=== PATIENT | male | born 1980 | race Caucasian/White ===

== ENCOUNTER 2022-01-19 18:58 | Emergency (ER) | payer BC, OTHER ==
--- OUTSIDE RECORDS SUMMARY | 2022-01-19 19:02 | XMS REPORT | Continuity of Care Document ---
:1980 [facility] t Address [address] [place] [address] Care Team Providers Name Role Phone Asher Stallworth Primary Care Physician KEYUR ALEJANDRO Attending Clinician Unavailable Flavia INFUSION PHARMACIST-Keyur Oliver Attending Clinician MARYSOL THOMAS Attending Clinician Unavailable Marysol Lyon Attending Clinician Nurse, [facility] Attending Clinician Unavailable Hawk Christie MD Attending Clinician HAWK CHRISTIE Attending Clinician Unavailable Doctor Unassigned, [place] Attending Clinician Unavailable Payers Payer Name Policy Type Policy Number Effective Date Expiration Date [place] [address] [id number] 2021 [employer] LIFE 00:00:00 INS/PPO COMMERCIAL [id number] 2021 NON-CONTRACT 00:00:00 GENERIC HIM BCBS BLUE [id number] 2018 ADVANTAGE HMO 00:00:00 Problems Condition Condition Condition Status Onset Resolution Last Treating Co mments Source Name Details Category Date Date Treatment Clinician Date No known No known Disease Unive rs active active ity of problems problems [facility] Allergies, Adverse Reactions, Alerts Allergy Allergy Status Severity Reaction(s) Onset Inactive Treating Comm ents Source Name Type Date Date Clinician NO KNOWN Drug Active Univers ALLERGIE Class ity of [facility] Social History Social Habit Start Date Stop Date Quantity Comments Source History of Snuff User [place] of tobacco use [facility] Exposure to 2022-01-07 2022-01-17 Not sure [facility] SARS-CoV-2 00:00:00 16:51:00 [facility] (event) Branch Tobacco use and 2018-08-03 2018-08-03 User of smokeless Un iversity of exposure 00:00:00 00:00:[address] [facility] Sex Assigned At [birth year] Universit y of 00:00:00 00:00:00 [facility] Smoking Status Start Date Stop Date Source Never smoked tobacco [facility] Medications Ordered Filled Start Stop Current Ordering Indication Dosage Frequency Signature Comments Components Source Medication Medication Date Date Medication? Clinician (SIG) Name Name iopamidol 2021- No [id number] 75mL 75 mL, U nivers (ISOVUE 01-18 Intravenou ity o f 370-500 mL) 02:00: 01:00 s, ONCE, 1 [place] injection 00 :00 dose, On Medica l [address] [facility] 01/17/22 at 2100, Routine HYDROcodone 2021- No 1{tbl} 1 tablet, Univers -acetaminop 01-18 Oral, ity of hen (NORCO 00:30: 00:24 ONCE, 1 Link as 5) 5-325 mg 00 :00 dose, On Medi sp tablet [address] [facility] tablet 01/17/22 at 1930, BABAK lisinopriL Yes 10mg 10 mg, Unive rs (PRINIVIL,Z 01-17 Oral, ity of ESTRIL) 22:30: DAILY, [place] tablet 10 00 First dose Medi sp mg on [facility] Branch 01/17/22 at 1730, Until Discontinu ed, BABAK methocarbam 2021- No 1000mg 1,000 mg, Univers oL 01-17 Oral, ity of (ROBAXIN) 22:30: 22:41 ONCE, 1 [place] tablet 00 :00 dose, On Medical 1,[address] [facility] 01/17/22 at 1730, BABAK ketorolac 2021- No 30mg 30 mg, Unive rs (TORADOL) 01-17 Slow IV ity of injection 22:30: 22:41 Push, [place] 30 mg 00 :00 ONCE, 1 Medical dose, On Branch Sat01/17/22 at 1730, BABAK ibuprofen Yes [id number] 800mg Take 1 Univers 800 mg 8-24 tablet by ity of tablet 00:00: mouth [place] 00 every 8 Medical (eight) Branch hours as needed for Pain (scale 4-6). methocarbam Yes [id number] 750mg Take 1 Univers oL 750 mg 8-24 tablet by ity o f tablet 00:00: mouth 4 [place] 00 (four) Medical times Branch daily as needed for Pain (scale 7-10). lisinopriL 2021- Yes [id number] 10mg Take 1 Univers 10 mg 8-24 09-08 tablet by ity of tablet 00:00: 04:59 mouth at [place] 00 :00 bedtime Medical for 14 Branch days. moxifloxaci Yes [id number] 1[drp] Place 1 Univers n (VIGAMOX) 3-30 Drop in ity o f 0.5 % 00:00: left eye 4 [place] ophthalmic 00 (four) Medical drops times Branch daily. moxifloxaci Yes [id number] 1[drp] Place 1 Univers n (VIGAMOX) 3-30 Drop in ity o f 0.5 % 00:00: left eye 4 [place] ophthalmic 00 (four) Medical drops times Branch daily. moxifloxaci Yes [id number] 1[drp] Place 1 Univers n (VIGAMOX) 3-30 Drop in ity o f 0.5 % 00:00: left eye 4 [place] ophthalmic 00 (four) Medical drops times Branch daily. neomycin-ba Yes [id number] .5[in_u Place 0.5 Univers citracin-po 3-29 s] Inches in ity of lymyxin 00:00: left eye [place] 3.5-400-10, 00 every 4 Medic al 000 (four) Branch mg-unit-uni hours. t/g ophthalmic ointment neomycin-ba Yes [id number] .5[in_u Place 0.5 Univers citracin-po 3-29 s] Inches in ity of lymyxin 00:00: left eye [place] 3.5-400-10, 00 every 4 Medic al 000 (four) Branch mg-unit-uni hours. t/g ophthalmic ointment neomycin-ba 2019-0 Yes [id number] .5[in_u Place 0.5 Univers citracin-po 3-29 s] Inches in ity of lymyxin 00:00: left eye [place] 3.5-400-10, 00 every 4 Medic al 000 (four) Branch mg-unit-uni hours. t/g ophthalmic ointment Vital Signs Vital Name Observation Time Observation Value Comments Source Systolic blood 2022-01-18 01:48:00 164 mm[Hg] Univer [facility] Diastolic blood 2022-01-18 01:48:00 119 mm[Hg] Unive rs[facility] Heart rate 2022-01-18 01:48:00 71 /min [facility] Respiratory rate 2022-01-18 01:48:00 15 /min [facility] Oxygen saturation in 2022-01-18 01:48:00 94 /min University of Arterial blood by [facility] Pulse oximetry Branch Body temperature 2022-01-17 22:45:00 36.61 Ynes [facility] Body weight 2022-01-17 22:12:00 131.543 kg [facility] BMI 2022-01-17 22:12:00 39.33 kg/m2 [facility] Systolic blood 2022-01-17 21:52:00 169 mm[Hg] Univer [facility] Diastolic blood 2022-01-17 21:52:00 119 mm[Hg] Unive [facility] Oxygen saturation in 2022-01-17 21:51:00 99 /min [facility] Arterial blood by [facility] Pulse oximetry Branch Heart rate 2022-01-17 21:51:00 86 /min [facility] temperature 2022-01-17 21:51:00 37.06 Ynes [facility] ersity [facility] Respiratory rate 2022-01-17 21:51:00 16 /min [facility] Body height 2022-01-17 21:51:00 182.9 cm [facility] Body weight 2022-01-17 21:51:00 131.543 kg [facility] BMI 2022-01-17 21:51:00 39.33 kg/m2 [facility] Procedures Procedure Date / Time Performing Clinician Source Performed CT ANGIOGRAM HEAD 2022-01-18 01:05:00 William [facility] CT ANGIOGRAM NECK 2022-01-18 01:05:00 [facility] 2022-01-18 01:04:00 Marysol Thomas [facility] URIN[facility]YSIS 2022-01-17 22[facility]17 22:40[facility] COMP. METABOLIC PANEL 2022-01-17 22:40:00 ThomasMarysol mendez [facility] ([id number]) [facility] CBC WITH DIFF 2022-01-17 22:40[facility] INR 2022-01-17 22:40:00 [facility] [place] CONSENT/REFUSAL FOR 2022-01-17 21:58:47 Doctor Unassigned, [facility] CONSENT/REFUSAL FOR 2022-01-17 21:32:01 [facility], [facility] Encounters Start End Encounter Admission Attending Care Care Encounter Source Date/Time Date/Time Type Type Clinicians Facility Department ID 2022-02-15 2022-02-15 Outpatient LILIANA ALEJANDRO [id number] [place] 08:00:00 08:00:00 KEYUR noble 2022-01-19 2022-01-19 Outpatient LILIANA ALEJANDRO [id number] [place] 00:00:00 00:00:00 KEYUR noble 2022-01-18 2022-01-18 Office Bari Alejandro [id number] [place] 10:30:00 11:00:00 Visit Keyur Roberts [id number] Se smith [id number] 2022-01-18 2022-01-18 Outpatient BRENNA ALEJANDRODANIELLE ROBLERO [id number] [place] 09:00:00 09:00:00 KEYUR Seelena noble 2022-01-18 2022-01-18 Outpatient LILIANA ALEJANDRO LILIANA [id number] [place] 00:00:00 00:00:00 KEYUR noble 2022-01-17 2022-01-17 Emergency X WILLIAM, [facility] ERT [id number] Univers 17:14:00 20:55:[address] [facility] 2022-01-17 2022-01-17 [facility] [id number] Univers 17:14:00 20:55:00 Marysol ALONSO [id number] i ty of [place] [id number] [place] [facility] [phone] [address] 2022-01-17 2022-01-17 Nurse Nurse, [facility] [id number] Univers 16:30:00 16:50:00 [facility] [id number] ity of [place] [id number] Link as ANDREA?BLEA [phone] [address] MEDICAL OFFICE BUILDING 2022-01-17 2022-01-17 Outpatient R [facility] [id number] Univers 16:30:00 16:30:[id number] [facility] 2022-01-17 2022-01-17 [facility] [id number] Univers 16:30:00 16:30:00 [facility] 2022-[facility]-17 2022-01-17 Orders Doctor RASHID [id number] Univers 00:00:00 00:00:00 Only Unassigned, ETTA [id number] ity of [place] [facility] [id number] Link as [phone] [address] Results This patient has no known results.
[2022-01-19] MEDS ORDERED: ASPIRIN 81 MG CHEWABLE TABLET ONE ×2 (19:54→19:56)
[2022-01-19 19:56] LABS: Absolute Lymphocytes (CBC) 1.9 K/uL (0.7-4.9); Lymphocytes % 21.7 % (15.3-44.8); MCV 83.6 fL (80-100); RBC Red Blood Cell Count 5.75 M/uL (4.33-5.43)
--- NOTE | 2022-01-19 20:18 | RAD REPORT ---
EXAM DESCRIPTION: CT - Head Brain Wo Cont - 01/19/2022 8:04 pm CLINICAL HISTORY: Headache COMPARISON: No comparisons TECHNIQUE: Axial 5 mm thick images of the head were obtained without IV contrast. All CT scans are performed using dose optimization technique as appropriate and may include automated exposure control or mA/KV adjustment according to patient size. FINDINGS: No intracranial hemorrhage, mass, edema or shift of mid-line structures. No acute infarcti on changes seen. No abnormal extra-axial fluid collections. Ventricles are normal. Mastoid air cells and visualized portions of the paranasal sinuses are clear. No acute bony findings. IMPRESSION: Negative non-contrast CT head examination.
[2022-01-19 20:40] LABS: Troponin High Sensitivity 8.1 pg/mL (<58.9)
[2022-01-19 20:41] LABS: Potassium 3.9 mmol/L (3.5-5.1)
[2022-01-19] MEDS ORDERED: KETOROLAC 30 MG/ML INJ ONE (20:58)
[2022-01-19] MEDS ORDERED: DIPHENHYDRAMINE 50 MG/ML VIAL ONE (20:58)
[2022-01-19] MEDS ORDERED: METOCLOPRAMIDE 10 MG/2mL INJ ONE (20:58)
[2022-01-19] MEDS ORDERED: NA CHLORIDE 0.9% 1,000 ML ONE (20:58)
--- NOTE | 2022-01-19 22:46 | RAD REPORT ---
EXAM DESCRIPTION: RAD - Chest Single View - 01/19/2022 10:40 pm CLINICAL HISTORY: CHEST PAIN COMPARISON: Two view chest October 2016 TECHNIQUE: AP portable chest image was obtained 01/19/2022 10:40 pm . FINDINGS: Lungs are clear. Heart and vasculature are normal. No measurable pleural effusion and no p neumothorax. No acute bony abnormality seen. No acute aortic findings suspected. Final report was delayed due to technical malfunction. IMPRESSION: No acute cardiopulmonary process. No significant change from comparison study.
--- NOTE | 2022-01-19 23:01 | EDPHYS ---
Physician Documentation [facility] Name: Chris Storey Age: 41 yrs Sex: Male : 1980 Arrival Date: 01/19/2022 Time: 19:02 Bed 16 Private MD: ED Physician Joshua Barker HPI: 01/19 19:53 This 41 yrs old Male presents to ER via Ambulatory with complaints of High Blood ms3 Pressure, Chest Tightness, Numbness Of Arm, Headache. 19:54 The patient complains of pain to the left occipital area. The patient describes the ms3 headache as aching. Onset: The symptoms/episode began/occurred acutely, 1 week(s) ago. Associated signs and symptoms: Pertinent positives: This patient does not have any pertinent positive signs or symptoms associated with a headache. Pertinent negatives: fever, nausea, vision changes, vision loss, vomiting, weakness. Severity of symptoms: At its worst the pain was severe, in the emergency department the pain is unchanged. The symptoms are alleviated by nothing. the symptoms are aggravated by nothing. Historical: - Allergies: 19:13 No Known Allergies; ap3 - Home Meds: 19:13 Claritin-D 12 Hour Oral [Active]; ap3 - PMHx: 19:13 HTN; ap3 - PSHx: 19:13 None; ap3 - Immunization history:: Adult Immunizations up to date. - Social history:: Smoking status: Patient reports the use of cigarette tobacco products, denies chronic smoking, but will smoke occasionally, Patient uses alcohol, occasionally. ROS: 19:54 Constitutional: Negative for fever, and chills. Eyes: Negative for injury, pain, ms3 redness, and discharge, Neck: Negative for injury, pain, and swelling, Cardiovascular: Negative for chest pain, and palpitations. Respiratory: Negative for shortness of breath, cough, wheezing, and pleuritic chest pain, Abdomen/GI: Negative for abdominal pain, nausea, vomiting, diarrhea, and constipation, MS/Extremity: Negative for injury and deformity, Skin: Negative for injury, rash, and discoloration. 19:54 Neuro: Positive for headache. 19:54 All other systems are negative. Exam: 19:36 ECG was reviewed by the Attending Physician. ms3 19:54 Constitutional: This is a well developed, well nourished patient who is awake, alert, ms3 and in no acute distress. Head/Face: Normocephalic, atraumatic. Eyes: Pupils equal round and reactive to light, extra-ocular motions intact. Lids and lashes normal. Conjunctiva and sclera are non-icteric and not injected. Periorbital areas with no swelling, redness, or edema. Neck: Trachea midline, no cervical lymphadenopathy. Supple, full range of motion without nuchal rigidity, or vertebral point tenderness. No Meningismus. Chest/axilla: Normal chest wall appearance and motion. Nontender with no deformity. Cardiovascular: Regular rate and rhythm with a normal S1 and S2. No gallops, murmurs, or rubs. Normal PMI, no JVD. No pulse deficits. Respiratory: Lungs have equal breath sounds bilaterally, clear to auscultation and percussion. No rales, rhonchi or wheezes noted. No increased work of breathing, no retractions or nasal flaring. Abdomen/GI: Soft, non-tender, with normal bowel sounds. No distension or tympany. No guarding or rebound. No evidence of tenderness throughout. Back: No spinal tenderness. No costovertebral tenderness. Full range of motion. Skin: Warm, dry with normal turgor. Normal color with no rashes, no lesions, and no evidence of cellulitis. MS/ Extremity: Pulses equal, no cyanosis. Neurovascular intact. Full, normal range of motion. Psych: Awake, alert, with orientation to person, place and time. Behavior, mood, and affect are within normal limits. Vital Signs: 19:13 BP 172 / 114; Pulse 83; Resp 18; Temp 97.8(TE); Pulse Ox 96% on R/A; Weight 131.54 kg; ap3 Height 6 ft. 1 in. (185.42 cm); Pain 10/10; 23:08 BP 155 / 103; Pulse 77; Resp 14; Pulse Ox 97% ; ja4 19:13 Body Mass Index 38.26 (131.54 kg, 185.42 cm) ap3 [place] Coma Score: 19:20 Eye Response: spontaneous(4). Verbal Response: oriented(5). Motor Response: obeys ja4 commands(6). Total: 15. MDM: 19:36 Patient medically screened. ms3 19:54 Differential diagnosis: cluster headache, migraine, subarachnoid bleed, [place] vs Angina vs ms3 PE. 23:00 Data reviewed: vital signs, nurses notes, lab test result(s), EKG, radiologic studies, ms3 and as a result, I will discharge patient. 23:00 Data interpreted: quality assurance monitor chassis: rate is 72 beats/min, rhythm is normal sinus rhythm, ms3 with no ectopy, Interpretation: normal rate, normal rhythm. Counseling: I had a detailed discussion with the patient and/or guardian regarding: the historical points, exam findings, and any diagnostic results supporting the discharge/admit diagnosis, lab results, radiology results, the need for outpatient follow up, to return to the emergency department if symptoms worsen or persist or if there are any questions or concerns that arise at home. ED course: Patient symptoms improved while in the emergency department, patient is alert and oriented x4, in no apparent distress, nontoxic, ambulatory in emergency department. Patient to follow-up as instructed. All questions were answered. Return precautions discussed include worsening symptoms, or any other concerns.. 01/19 19:33 Order name: Basic Metabolic Panel; Complete Time: 20:46 ms3 01/19 19:33 Order name: CBC with Diff; Complete Time: 20:46 ms3 01/19 19:33 Order name: Troponin HS; Complete Time: 20:46 ms3 01/19 19:33 Order name: XRAY Chest (1 view); Complete Time: 22:57 ms3 01/19 19:33 Order name: CT Head Brain wo Cont; Complete Time: 20:46 ms3 01/19 19:53 Order name: D-Dimer; Complete Time: 20:46 ms3 01/19 19:33 Order name: EKG; Complete Time: 19:33 ms3 01/19 19:33 Order name: Cardiac monitoring; Complete Time: 19:43 ms3 01/19 19:33 Order name: EKG - Nurse/Tech; Complete Time: 19:43 ms3 01/19 19:33 Order name: IV Saline Lock; Complete Time: 19:43 ms3 01/19 19:33 Order name: Labs collected and sent; Complete Time: 19:43 ms3 01/19 19:33 Order name: O2 Per Protocol; Complete Time: 19:44 ms3 01/19 19:33 Order name: O2 Sat Monitoring; Complete Time: 19:44 ms3 EC:54 Rate is 74 beats/min. Rhythm is regular. QRS [place] is Normal. [place] interval is normal. QRS ms3 interval is normal. Clinical impression: NSR w/ Non-specific ST/T Changes. Interpreted by me. Reviewed by me. Administered Medications: 19:47 Drug: Aspirin Chewable Tablet 324 mg Route: PO; ld1 20:49 Drug: Reglan (metoCLOPramide) 10 mg Route: IVP; Site: left antecubital; ja4 20:49 Drug: NS 0.9% 1000 ml Route: IV; Rate: 1000 ml; Site: left antecubital; ja4 20:49 Drug: Benadryl (diphenhydrAMINE) 25 mg Route: IVP; Site: left antecubital; ja4 20:57 Drug: Ketorolac 30 mg Route: IVP; Site: left antecubital; ll3 22:02 Drug: D10 in Water [2 mL/kg] 500 ml Route: IVP; Site: left forearm; ja4 Disposition Summary: 01/19/22 23:00 Discharge Ordered Location: Home ms3 Condition: Stable ms3 Diagnosis - Headache ms3 - Essential (primary) hypertension ms3 - Chest pain, unspecified ms3 Followup: ms3 - With: Mike Titus MD - When: 2 - 3 days - Reason: Recheck today's complaints Discharge Instructions: - Discharge Summary Sheet ms3 - Nonspecific Chest Pain, Adult ms3 - Hypertension, Adult ms3 Forms: - Medication Reconciliation Form ms3 - Thank You Letter ms3 - Antibiotic Education ms3 - Prescription Opioid Use ms3 Signatures: Dispatcher [employer] EDME Aiyana Leon RN RN ap3 Joshua Barker DO DO ms3 Bijal Mike RN RN ld1 William Irving RN RN ll3 Acosta Feldman RN RN ja4 Corrections: (The following items were deleted from the chart) 19:14 19:13 PMHx: None; ap3 ap3 19:59 19:36 ECG was reviewed by the Attending Physician. ms3 ms3 01/20 08:35 08:33 Data reviewed: vital signs, nurses notes, lab test result(s), EKG, radiologic ms3 studies, ms3
--- NOTE | 2022-01-19 23:01 | ER ---
Nurse's Notes [facility] Name: Chris Storey Age: 41 yrs Sex: Male : 1980 Arrival Date: 01/19/2022 Time: 19:02 Bed 16 Private MD: Diagnosis: Headache;Essential (primary) hypertension;Chest pain, unspecified Presentation: 01/19 19:09 Chief complaint: EMS states: chest pain and high BP 181 systolic started today, ap3 throbbing h/a since Saturday. Coronavirus screen: Vaccine status: Patient reports being unvaccinated. Ebola Screen: No symptoms or risks identified at this time. Risk Assessment: Do you want to hurt yourself or someone else? Patient reports no desire to harm self or others. Onset of symptoms was January 19, 2022. 19:09 Method Of Arrival: Ambulatory ap3 19:09 Acuity: BUSHRA 3 ap3 19:13 Initial Sepsis Screen: Does the patient meet any 2 criteria? No. Patient's initial ap3 sepsis screen is negative. Does the patient have a suspected source of infection? No. Patient's initial sepsis screen is negative. Triage Assessment: 19:16 General: Appears distressed, uncomfortable, Behavior is cooperative, appropriate for ap3 age, anxious. Pain: Complains of pain in top of head, forehead, right eye, left eye, right jehovah's witness, left jehovah's witness, left side of the back of head and right side of the back of head Pain does not radiate. Pain currently is 10 out of 10 on a pain scale. Quality of pain is described as throbbing, Pain began 1 day ago. Is continuous, Alleviated by rest, Aggravated by increased activity, repositioning. Neuro: Level of Consciousness is awake, alert, obeys commands, Oriented to person, place, time, situation. Cardiovascular: Capillary refill < 3 seconds Patient's skin is warm and dry. 19:16 Respiratory: Airway is patent Respiratory effort is even, unlabored. ap3 Historical: - Allergies: 19:13 No Known Allergies; ap3 - Home Meds: 19:13 Claritin-D 12 Hour Oral [Active]; ap3 - PMHx: 19:13 HTN; ap3 - PSHx: 19:13 None; ap3 - Immunization history:: Adult Immunizations up to date. - Social history:: Smoking status: Patient reports the use of cigarette tobacco products, denies chronic smoking, but will smoke occasionally, Patient uses alcohol, occasionally. Screenin:20 Abuse screen: Denies threats or abuse. Nutritional screening: No deficits noted. ja4 Tuberculosis screening: No symptoms or risk factors identified. Fall Risk None identified. Assessment: 19:20 General: Appears uncomfortable, Behavior is calm, cooperative, appropriate for age. ja4 Pain: Denies pain. Pain began 1 day ago. Is continuous. Cardiovascular: Reports chest pain, Denies Chest pain quality is burning. Vital Signs: 19:13 BP 172 / 114; Pulse 83; Resp 18; Temp 97.8(TE); Pulse Ox 96% on R/A; Weight 131.54 kg; ap3 Height 6 ft. 1 in. (185.42 cm); Pain 10/10; 23:08 BP 155 / 103; Pulse 77; Resp 14; Pulse Ox 97% ; ja4 19:13 Body Mass Index 38.26 (131.54 kg, 185.42 cm) ap3 [place] Coma Score: 19:20 Eye Response: spontaneous(4). Verbal Response: oriented(5). Motor Response: obeys ja4 commands(6). Total: 15. ED Course: 19:02 Patient arrived in ED. ja2 19:13 Triage completed. ap3 19:14 Joshua Barker DO is Attending Physician. ms3 19:16 Asher Suazo, RN is Primary Nurse. bp 19:16 Arm band placed on right wrist. ap3 19:20 Patient has correct armband on for positive identification. Call light in reach. Client ja4 placed on continuous cardiac and pulse oximetry monitoring. NIBP monitoring applied. 19:20 Patient maintains SpO2 saturation greater than 95% on room air. ja4 19:35 XRAY Chest (1 view) In Process Unspecified. EDMS 19:46 Inserted saline lock: 20 gauge in left antecubital area, using aseptic technique. mw1 20:05 CT Head Brain wo Cont In Process Unspecified. EDMS 20:34 D-Dimer Sent. ja4 22:59 Mike Titus MD is Referral Physician. ms3 Administered Medications: 19:47 Drug: Aspirin Chewable Tablet 324 mg Route: PO; ld1 20:49 Drug: Reglan (metoCLOPramide) 10 mg Route: IVP; Site: left antecubital; ja4 20:49 Drug: NS 0.9% 1000 ml Route: IV; Rate: 1000 ml; Site: left antecubital; ja4 20:49 Drug: Benadryl (diphenhydrAMINE) 25 mg Route: IVP; Site: left antecubital; ja4 20:57 Drug: Ketorolac 30 mg Route: IVP; Site: left antecubital; 3 22:02 Drug: D10 in Water [2 mL/kg] 500 ml Route: IVP; Site: left forearm; ja4 Medication: 19:20 VIS not applicable for this client. ja4 Outcome: 23:00 Discharge ordered by ms3 23:11 Patient left the ED. ja4 Signatures: Dispatcher [employer] EDMS Garret Tapia mw1 Asher Suazo, RN RN bp Aiyana Leon RN RN ap3 Joshua Barker, DO ms3 Bijal Mike RN RN ld1 Pam Guaman ja2 William Irving RN RN ll3 Acosta Feldman RN RN ja4 Corrections: (The following items were deleted from the chart) 19:14 19:13 PMHx: None; ap3 ap3
[2022-01-20 01:37] VITALS: TEMP 97.8
[2022-01-20 01:39] VITALS: BP 155/103; O2SAT 97
--- NOTE | 2022-01-20 15:19 | EKG ---
Test Date: 2022-01-19 Test Time: 19:33:14 Mac Artist: KAREN MEASUREMENT RESULTS: Intervals: Rate: 74 WY: 152 QRSD: 90 QT: 372 QTc: 412 [place]: P: 21 WY: 152 QRS: 33 T: 57 INTERPRETIVE STATEMENTS: Normal sinus rhythm Nonspecific T wave abnormality Abnormal ECG No previous ECG available for comparison Electronically Signed On 01-20-22 15:18:21 CDT by Mike Titus
== END 2022-01-19 23:11 | disposition home or self-care (01) ==
LOC: ER 18:58
DX: R51.9 Headache, unspecified (principal); R07.89 Other chest pain; I10 Essential (primary) hypertension; F17.210 Nicotine dependence, cigarettes, uncomplicated
CPT/HCPCS: 93005; 85025; 80048; 36415; 85379; 84484; 70450; 71045; 96375; 96374; 99284; J2765; J1200; J7030

== ENCOUNTER 2023-12-23 18:50 | Inpatient (IN) | payer OTHER ==
--- OUTSIDE RECORDS SUMMARY | 2023-12-23 18:54 | XMS REPORT | Continuity of Care Document ---
Author Name Unknown Address [address] [facility] [address] [place] [address] [facility] thconnect Address [address] [address] [place] [address] Care Team Providers Care Outpatient Therapist Name Role Phone JASIEL BOONE Primary Care Physician Unavailab JOSE Andrews Attending Clinician Unavailab marika BLANTON MD Attending Clinician Unavailab ERASTO Sharma Attending Clinician UnavailKEYUR Flores Attending Clinician Unavailable LAB90 Attending Clinician Unavailable Keyur Barron Attending Clinician [phone] AMRYSOL CARTER Attending Clinician Unavailable Marysol Lyon Attending Clinician [phone] Nurse, [facility] Attending Clinician Un available Hawk Christie MD Attending Clinician [phone] HAWK CHRISTIE Attending Clinician Unavailable Doctor Unassigned, [place] Attending Clinician U MARYSOL Contreras Admitting Clinician Unavailable Payers Payer Name Policy Type Policy Number Effective Date Expirati on Date Source [facility] [employer] 2 [id number] 2023 00:00:00 [facility] LIFE INS/PPO 2 [id number] 2021 00:00:00 [place] [facility] [id number] 2021 00:00:00 [facility] BCBS BLUE ADVANTAGE O [id number] 2018 00:00:00 Problems Condition Name Condition Details Condition Category Status Onset Date Resolution Date Last Treatment Date Treating Clinician Comments Source Primary hypertensi on Primary hypertensi on Disease Active 2021-05 00:00: 00 Liliana Spencer l Vitamin D deficiency Vitamin D deficiency Disease Active 2021-05 00:00: 00 Liliana killian No known active problems No known active problems Disease Liliana Harmon - Externa l Allergies, Adverse Reactions, Alerts Allergy Name Allergy Type Status Severity Reaction(s) Onset Date Inactive Date Treating Clinician Comments Source NO KNOWN ALLERGIE S Drug Class Active [facility] Social History Social Habit Start Date Stop Date Quantity Comments Source History of tobacco use Snuff User Liliana Harmon - External Sexual orientation [place] cub[place] Faustino - External Alcoholic beverage intake 2023-09-06 00:00:00 2023-09-06 00:00:00 4.29 /d Liliana Harmon - External History of Social function 2022-03-19 00:00:00 2022-03-19 00:00:00 Liliana Harmon - External Alcohol intake 2022-02-15 00:00:00 2022-02-15 00:00:00 4.29 /d Liliana Harmon - External Tobacco use and exposure 2022-01-18 00:00:00 2022-01-18 00:00:00 User of smokeless tobacco Liliana Harmon - External Exposure to SARS-CoV-2 (event) 2022-01-07 00:00:00 2022-01-17 16:51:00 Not sure [facility] Sex assigned at 1980 00:00:00 1980 00:00:00 Liliana Harmon - External Smoking Status Start Date Stop Date Source Smokes tobacco daily 2022-01-18 00:00:00 Liliana Corado External Never smoked tobacco [facility] Medications Ordered Medication Name Filled Medication Name Start Date Stop Date Current Medication? Ordering Clinician Indication Dosage Frequency Signature (SIG) Comments Components Source TESTOSTERON E CYPIONATE IJ 09-05 08:14: 25 Yes Inject as directed Liliana killian Lisinopril 40 MG oral Tablet 09-05 00:00: 00 Yes [id number] 40mg Take 1 tablet (40 mg total) by mouth daily. Liliana killian Levocetiriz ine Dihydrochlo ride 5 MG oral Tablet 09-05 00:00: 00 Yes [id number] 5mg Take 1 tablet (5 mg total) by mouth every day at 5:00 PM. Liliana killian FLUTICASONE PROPIONATE, NASAL, 50 MCG/ACT nasal Suspension 09-05 00:00: 00 Yes [id number] 50ug Use 1 spray (50 mcg total) in each nostril 2 times daily. Liliana killian Anastrozole 1 MG oral Tablet 06-25 00:00: 00 Yes Liliana killian Lisinopril 40 MG oral Tablet 2022-05 00:00: 00 09-05 00:00 :00 No [id number] 40mg TAKE 1 TABLET(40 MG) BY MOUTH DAILY Liliana killian hydroCHLORO thiazide 12.5 MG oral Capsule 02-19 00:00: 00 Yes [id number] 25mg Take 2 capsules (25 mg total) by mouth every morning Liliana killian Lisinopril 40 MG oral Tablet 02-15 00:00: 00 Yes [id number] 40mg Take 1 tablet (40 mg total) by mouth daily Liliana killian hydroCHLORO thiazide 12.5 MG oral Capsule 02-15 00:00: 00 Yes [id number] 25mg Take 2 capsules (25 mg total) by mouth every morning Liliana killian Vitamin D, Ergocalcife rol, 1.25 MG (17631 UT) oral Capsule 02-15 00:00: 00 02-15 00:00 :00 No [id number] 92886C Take 1 capsule (50,000 units total) by mouth once a week Liliana killian hydroCHLORO thiazide 12.5 MG oral Capsule 02-06 00:00: 00 02-15 00:00 :00 No [id number] 25mg Take 2 capsules (25 mg total) by mouth every morning Liliana killian Rizatriptan Benzoate 5 MG oral Tablet 01-22 00:00: 00 Yes [id number] Take 5 mg at the onset of ESPINOZA. May repeat dose in 2 hours if SEPINOZA persist Liliana killian Lisinopril 40 MG oral Tablet 01-19 00:00: 00 02-15 00:00 :00 No [id number] 40mg Take 1 tablet (40 mg total) by mouth daily Liliana killian iopamidol (ISOVUE 370-500 mL) injection 75 mL 01-18 02:00: 00 01-18 01:00 :00 No [id number] 75mL 75 mL, Intravenou s, ONCE, 1 dose, On Sat01/17/22 at 2100, Routine [facility] HYDROcodone -acetaminop hen (NORCO 5) 5-325 mg tablet 1 tablet 01-18 00:30: 00 01-18 00:24 :00 No 1{tbl} 1 tablet, Oral, ONCE, 1 dose, On Sat01/17/22 at 1930, [facility] lisinopriL (PRINIVIL,Z ESTRIL) tablet 10 mg 01-17 22:30: 00 Yes 10mg 10 mg, Oral, DAILY, First dose on Sat01/17/22 at 1730, Until Discontinu ed, [facility] methocarbam oL (ROBAXIN) tablet 1,000 mg 01-17 22:30: 00 01-17 22:41 :00 No 1000mg 1,000 mg, Oral, ONCE, 1 dose, On Sat01/17/22 at 1730, [facility] ketorolac (TORADOL) injection 30 mg 01-17 22:30: 00 01-17 22:41 :00 No 30mg 30 mg, Slow IV Push, ONCE, 1 dose, On 8/24/22 at 1730, BABAK [facility] ibuprofen 800 mg tablet 01-17 00:00: 00 Yes [id number] 800mg Take 1 tablet by mouth every 8 (eight) hours as needed for Pain (scale 4-6). [facility] Methocarbam ol 750 MG oral Tablet 01-17 00:00: 00 02-15 00:00 :00 No 750mg Q.25D Take 750 mg by mouth 4 times daily as needed Liliana killian lisinopriL 10 mg tablet 01-17 00:00: 00 02-01 04:59 :00 No [id number] 10mg Take 1 tablet by mouth at bedtime for 14 days. [facility] Anastrozole 1 MG oral Tablet 11-29 00:00: 00 Yes TAKE 1/2 TABLET BY MOUTH EVERY 24-48 HOURS AFTER WEEKLY INJECTIONS Liliana killian moxifloxaci n (VIGAMOX) 0.5 % ophthalmic drops 08-23 00:00: 00 Yes [id number] 1[drp] Place 1 Drop in left eye 4 (four) times daily. [facility] neomycin-ba citracin-po lymyxin 3.5-400-10, 000 mg-unit-uni t/g ophthalmic ointment 08-22 00:00: 00 Yes [id number] .5[in_u s] Place 0.5 Inches in left eye every 4 (four) hours. [facility] Vital Signs Vital Name Observation Time Observation Value Comments S ource Systolic blood pressure 2023-09-06 13:12:00 142 mm[Hg] Liliana grove - External Diastolic blood pressure 2023-09-06 13:12:00 90 mm[Hg] Liliana grove - External Heart rate 2023-09-06 13:12:00 61 /min Gustavo Harmon - External Body temperature 2023-09-06 13:12:00 36.17 Ynes Liliana Harmon - External Respiratory rate 2023-09-06 13:12:00 18 /min Liliana Harmon - External Body height 2023-09-06 13:12:00 182.9 cm Flora ey Seybold - External Body weight 2023-09-06 13:12:00 132.45 kg Flora ey Seybold - External BMI 2023-09-06 13:12:00 39.60 kg/m2 Flora ey Seybold - External Oxygen saturation in Arterial blood by Pulse oximetry 2023-09-06 13:12:00 99 /min Liliana Seybo ld - External Systolic blood pressure 2022-02-15 13:17:00 102 mm[Hg] Liliana Seybo ld - External Diastolic blood pressure 2022-02-15 13:17:00 66 mm[Hg] Liliana Seybo ld - External Heart rate 2022-02-15 13:17:00 76 /min Gustavo y Seybold - External Body temperature 2022-02-15 13:17:00 36.17 Ynes Liliana Seybold - External Respiratory rate 2022-02-15 13:17:00 16 /min Liliana Seybold - External Body height 2022-02-15 13:17:00 185.4 cm Flora ey Seybold - External Body weight 2022-02-15 13:17:00 131.09 kg Flora ey Seybold - External BMI 2022-02-15 13:17:00 38.13 kg/m2 Flora ey Seybold - External Systolic blood pressure 2022-01-18 01:48:00 164 mm[Hg] [facility] Diastolic blood pressure 2022-01-18 01:48:00 119 mm[Hg] [facility] Heart rate 2022-01-18 01:48:00 71 /[facility] 2022-01-18 01:48:00 15 /min [facility] Oxygen saturation in Arterial blood by Pulse oximetry 2022-01-18 01:48:00 94 /min [facility] Body temperature 2022-01-17 22:45:00 36.61 Ynes [facility] Body weight 2022-01-17 22:12:00 131.543 kg [facility] BMI 2022-01-17 22:12:00 39.33 kg/m2 [facility] Systolic blood pressure 2022-01-17 21:52:00 169 mm[Hg] [facility] Diastolic blood pressure 2022-01-17 21:52:00 119 mm[Hg] [facility] Heart rate 2022-01-17 21:51:00 86 /min [facility] Body temperature 2022-01-17 21:51:00 37.06 Ynes [facility] Respiratory rate 2022-01-17 21:51:00 16 /min [facility] Body height 2022-01-17 21:51:00 182.9 cm [facility] Body weight 2022-01-17 21:51:00 131.543 kg [facility] BMI 2022-01-17 21:51:00 39.33 kg/m2 [facility] Oxygen saturation in Arterial blood by Pulse oximetry 2022-01-17 21:51:00 99 /min [facility] Procedures Procedure Date / Time Performed Performing Clinician Source CT ANGIOGRAM HEAD 2022-01-18 01:05:00 Marysol Carter [facility] CT ANGIOGRAM NECK 2022-01-18 01:05:00 Marysol Carter [facility] CT HEAD WO CONTRAST 2022-01-18 01:04:00 Anna Carter [facility] URINALYSIS 2022-01-17 22:52:00 Marysol Carter [facility] TROPONIN I 2022-01-17 22:40:00 Marysol Carter [facility] COMP. METABOLIC PANEL ([id number]) 2022-01-17 22:40:00 Marysol Carter [facility] CBC WITH DIFF 2022-01-17 22:40:00 Marysol Carter [facility] PROTHROMBIN TIME / INR 2022-01-17 22:40:00 Indy Carter [facility] CONSENT/REFUSAL FOR DIAGNOSIS AND TREATMENT 2022-01-17 21:58:47 Doctor Unassigned, [place] [facility] CONSENT/REFUSAL FOR DIAGNOSIS AND TREATMENT 2022-01-17 21:32:01 Doctor Unassigned, [place] [facility] Encounters Start Date/Time End Date/Time Encounter Type Admission Type Attending [facility] Care Department Encounter ID Source 2023-11-01 11:30:00 2023-11-01 11:30:00 Outpatient JOSE CAMPBELL LILIANA ROBLERO [id number] Liliana yessi 2023-10-10 08:00:00 2023-10-10 08:00:00 Outpatient ADRIAN JOSE ROBLERO [id number] Liliana yessi 2023-09-16 00:00:00 2023-09-16 00:00:00 Outpatient MD LILIANA CARTAGENA [id number] Liliana yessi 2023-09-13 08:15:00 2023-09-13 08:15:00 Outpatient ERASTO DUONG [id number] [facility]iana [facility] 2023-09-06 08:30:00 2023-09-06 08:30:00 Outpatient ADRIAN JOSE ROBLERO [id number] [facility] 2023-04-22 00:00:00 2023-04-22 00:00:00 Outpatient KEYUR ALEJANDRO [id number] Liliana yessi 2023-04-19 00:00:00 2023-04-19 00:00:00 Outpatient KEYUR ALEJANDRO [id number] [facility] 2023-01-22 00:00:00 2023-01-22 00:00:00 Outpatient KEYUR ALEJANDRO [id number] [facility] 2022-03-19 08:30:00 2022-03-19 08:30:00 Outpatient KEYUR ALEJANDRO [id number] [facility] 2022-03-15 08:00:00 2022-03-15 08:00:00 Outpatient KEYUR ALEJANDRO [id number] Liliana ybyessi 2022-02-15 08:50:00 2022-02-15 08:50:00 Outpatient MAJO ROBLERO [id number] Liliana sarah 2022-02-15 08:00:00 2022-02-15 08:00:00 Outpatient KEY[facility] ALEJANDRO [id number] [facility] 2022-02-15 00:00:00 2022-02-15 00:00:00 Outpatient KEYUR ALEJANDRO LILIANA [id number] [facility] 2022-02-06 00:00:00 2022-02-06 00:00:00 Outpatient RANJIT, KEYUR ROBLERO [id number] [facility] 2022-02-05 00:00:00 2022-02-05 00:00:00 Outpatient KEYUR ALEJANDRO LILIANA [id number] [facility] 2022-01-19 00:00:00 2022-01-19 00:00:00 Outpatient RANJIT, KEYUR ROBLERO LILIANA [id number] [facility] 2022-01-18 10:30:00 2022-01-18 11:00:00 Office Visit Keyur Alejandro 1..840.114 [id number] [facility] 2022-01-18 09:00:00 2022-01-18 09:00:00 Outpatient KEYUR ALEJANDRO LILIANA [id number] [facility] 2022-01-18 00:00:00 2022-01-18 00:00:00 Outpatient RANJIT, KEYUR ROBLERO LILIANA [id number] [facility] 2022-01-17 17:14:00 2022-01-17 20:55:00 Emergency X MARYSOL [facility]TER [facility] [id number] [facility] 2022-01-17 17:14:00 2022-01-17 20:55:00 Emergency Marysol Carter [facility] ..840.114 [id number] [facility] 2022-01-17 16:30:00 2022-01-17 16:50:00 Nurse Visit Nurse, [facility] Hawk Christie [facility] 1..840.114 350.1.13.10 [id number] [facility] 2022-01-17 16:30:00 2022-01-17 16:30:00 Outpatient HAWK CALLE [facility] [id number] [facility] 2022-01-17 00:00:00 2022-01-17 00:00:00 Orders Only Doctor Unassigned, [place] [facility] [id number] [id number] [id number] [facility]
[2023-12-23] MEDS ORDERED: FENTANYL CITR 100 MCG/2 ML ONE (19:36)
[2023-12-23] MEDS ORDERED: ASPIRIN 81 MG CHEWABLE TABLET ONE (19:37)
[2023-12-23] MEDS ORDERED: NA CHLORIDE 0.9% 1,000 ML ONE ×2 (19:38→20:45)
[2023-12-23] MEDS ORDERED: ONDANSETRON 4 MG/2 ML VIAL ONE (19:38)
[2023-12-23 19:42] LABS: Absolute Basophils 0.1 K/uL (0-0.5); Absolute Eosinophils 0.2 K/uL (0-0.5); Absolute Lymphocytes (CBC) 1.6 K/uL (0.7-4.9); Absolute Monocytes 1.5 K/uL (0.1-1.3); Absolute Neutrophil 16.4 K/uL (1.8-8.0); Basophils % 0.3 % (0-1.3); Eosinophils % 1.1 % (0-4.4); Hematocrit 49.6 % (39.6-49.0); Hemoglobin 16.1 g/dL (13.6-17.9); Lymphocytes % 8.1 % (15.3-44.8); MCH 27.6 pg (27.0-35.0); MCHC 32.5 g/dL (32.0-36.0); MCV 84.8 fL (80-100); MPV 8.2 fL (7.6-11.3); Monocytes % 7.7 % (3.3-12.3); Neutrophils % 82.8 % (41.7-73.7); Platelets 276 thou/uL (152-406); RBC Red Blood Cell Count 5.84 M/uL (4.33-5.43); Red Cell Distribution Width 14.2 % (12.1-15.2)
[2023-12-23 19:51] LABS: PT Prothrombin Time 11.2 SECONDS (9.4-12.5)
[2023-12-23 20:01] LABS: Albumin 5.1 g/dL (3.4-5.0); Albumin/Globulin Ratio 1.6 (1.1-1.8); Anion Gap 11.7 mEq/L (5.0-15.0); Bilirubin Direct 0.2 mg/dL (0-0.2); Bilirubin Indirect, Calculated 0.4 mg/dL (0.2-0.8); Bilirubin Total 0.6 mg/dL (0.2-1.0); Globulin 3.2 g/dL (2.3-3.5); Magnesium 2.5 mg/dL (1.6-2.4); Potassium 3.7 mEq/L (3.5-5.1); Protein, Total 8.3 g/dL (6.4-8.2)
--- NOTE | 2023-12-23 20:14 | RAD REPORT ---
EXAM DESCRIPTION: Ammy Single View12/23/2023 8:06 pm CLINICAL HISTORY: Chest pain COMPARISON: 2021 FINDINGS: The lungs appear clear of acute infiltrate. The heart is normal size IMPRESSION: No acute abnormalities displayed
--- NOTE | 2023-12-23 21:54 | RAD REPORT ---
EXAM DESCRIPTION: CT - Stone Protocol - 12/23/2023 9:30 pm CLINICAL HISTORY: Abdominal pain. Acute renal failure COMPARISON: None. TECHNIQUE: Computed axial tomography of the abdomen pelvis was obtained without oral or IV contrast. Lack of IV and oral contrast limits evaluation of solid organs, appendix, bowel, and vessels. Sena l reformatted images were obtained and reviewed. All CT scans are performed using dose optimization technique as appropriate and may include automated exposure control or mA/KV adjustment according to patient size. FINDINGS: 2 millimeter calculus right kidney. Hydronephrosis. Ureteral calculus is not seen. No left renal calculus. Bladder calculus is not noted. No hydronephrosis. The liver, spleen, pancreas and adrenals appear grossly normal There is no evidence of diverticulitis. The appendix appears normal Small right and small to moderate left inguinal hernias contain fat IMPRESSION: 2 millimeter nonobstructing right renal calculus
--- NOTE | 2023-12-23 22:10 | EDPHYS ---
Physician Documentation [facility] Name: Chris Storey Age: 43 yrs Sex: Male : 1980 Arrival Date: 12/23/2023 Time: 18:50 Bed 8 Private MD: ED Physician Sabino Beal HPI: 12/22 19:33 This 43 yrs old Male presents to ER via Ambulatory with complaints of Chest Pain, cp Palpitations, Low BP. 19:33 The chest pain is described as a pressure. cp 19:33 The patient or guardian reports chest pain that is located primarily in the substernal cp area. Onset: 2 hour(s) ago. 19:33 Duration: The patient or guardian reports a single episode, that is still ongoing. cp 19:33 Associated signs and symptoms: Pertinent positives: nausea, palpitations, Pertinent cp negatives: abdominal pain, near syncope, shortness of breath, syncope, active vomiting. Historical: - Allergies: 19:30 No Known Allergies; jb4 - PMHx: 19:30 HTN; jb4 - PSHx: 19:30 None; jb4 - Immunization history:: Adult Immunizations up to date. - Infectious Disease History:: Denies. - Social history:: Smoking status: Patient reports use of chewing tobacco. Patient uses alcohol, occasionally. ROS: 19:35 Constitutional: Negative for body aches, chills, fever, poor PO intake, cp 19:35 Eyes: Negative for injury, pain, redness, and discharge, cp 19:35 Cardiovascular: Positive for chest pain, palpitations, 19:35 Respiratory: Negative for cough, shortness of breath, wheezing, 19:35 Abdomen/GI: Negative for abdominal pain, diarrhea, constipation, active vomiting, 19:35 Neuro: Negative for altered mental status, dizziness, headache, syncope, weakness, 19:35 All other systems are negative, Exam: 19:35 ECG was reviewed by the Attending Physician. cp 19:40 Constitutional: The patient appears in no acute distress, alert, awake, cp non-diaphoretic, non-toxic, well developed, well nourished, anxious, 19:40 Head/Face: Normocephalic, atraumatic. cp 19:40 Eyes: Periorbital structures: appear normal, Conjunctiva: normal, no exudate, no injection, Sclera: no appreciated abnormality, Lids and lashes: appear normal, bilaterally, 19:40 ENT: External ear(s): are unremarkable, Nose: is normal, Mouth: Lips: moist, Oral mucosa: pink and intact, moist, Posterior pharynx: Airway: no evidence of obstruction, patent, 19:40 Chest/axilla: Inspection: normal, Palpation: is normal, no crepitus, no tenderness, 19:40 Cardiovascular: Rate: normal, Rhythm: regular, Edema: is not appreciated, JVD: is not appreciated, 19:40 Respiratory: the patient does not display signs of respiratory distress, Respirations: normal, no use of accessory muscles, no retractions, labored breathing, is not present, Breath sounds: are clear throughout, no decreased breath sounds, no stridor, no wheezing, 19:40 Abdomen/GI: Inspection: abdomen appears normal, Palpation: abdomen is soft and non-tender, in all quadrants, 19:40 Back: pain, is absent, ROM is normal, 19:40 Neuro: Orientation: to person, place \T\ time. Mentation: is normal, Motor: moves all fours, Sensation: is normal, Vital Signs: 19:27 BP 116 / 70; Pulse 98; Resp 18; Pulse Ox 98% on R/A; Weight 127.01 kg (R); Height 6 ft. jb4 1 in. (R); Pain 8/10; 19:59 BP 103 / 65; Pulse 88; Resp 17; Temp 98.6; Pulse Ox 98% ; Pain 10/10; bm8 21:50 BP 116 / 73; Pulse 85; Resp 17; Temp 98.6; Pulse Ox 98% ; Pain 0/10; bm8 23:29 BP 136 / 72; Pulse 78; Resp 17; Temp 98.5; Pulse Ox 98% ; Pain 0/10; bm8 19:27 Body Mass Index 36.94 (127.01 kg, 185.42 cm) jb4 19:27 Pain Scale: Adult jb4 19:59 Pain Scale: Adult bm8 21:50 Pain Scale: Adult bm8 23:29 Pain Scale: Adult bm8 [place] Coma Score: 19:59 Eye Response: spontaneous(4). Motor Response: obeys commands(6). Verbal Response: bm8 oriented(5). Total: 15. 21:50 Eye Response: spontaneous(4). Motor Response: obeys commands(6). Verbal Response: bm8 oriented(5). Total: 15. 23:29 Eye Response: spontaneous(4). Motor Response: obeys commands(6). Verbal Response: bm8 oriented(5). Total: 15. MDM: 19:15 Patient medically screened. cp 22:15 The patient was given aspirin in the Emergency Department. cp 22:15 Consideration of Admission/Observation Patient was admitted/placed on observation. cp Management of patient was discussed with the following: Hospitalist: DR Tinoco will admit after discussion and requests cardiology consult. I considered the following discharge prescriptions or medication management in the emergency department Medications were administered in the Emergency Department. See MAR. Independent interpretation of the following test(s) in the Emergency Department EKG: See my EKG interpretation above. 22:20 Care significantly affected by the following chronic conditions: Hypertension. cp 22:20 ED course: cardiology answering service contacted, awaiting return call. 12/23 06:43 Differential diagnosis: anxiety, costochondritis, esophagitis, gastritis. Data sp4 reviewed: vital signs, nurses notes, old medical records, lab test result(s), EKG, radiologic studies. 06:44 ED course: admitted. sp4 12/22 19:31 Order name: Basic Metabolic Panel; Complete Time: 20:38 cp 12/22 20:39 Interpretation: Normal except: BUN 20; CRE 3.40; GFR 22. cp 12/22 19:31 Order name: CBC with Diff; Complete Time: 20:38 12/22 20:39 Interpretation: Normal except: WBC 19.80; RBC 5.84; HCT 49.6; ERNESTO% 82.8; LYM% 8.1; NEUT cp A 16.4; MNA 1.5. 12/22 19:31 Order name: LFT's; Complete Time: 20:38 cp 12/22 19:31 Order name: Magnesium; Complete Time: 20:38 cp 12/22 20:39 Interpretation: Reviewed. 12/22 19:31 Order name: NT PRO-BNP; Complete Time: 20:38 cp 12/22 19:31 Order name: PT-INR; Complete Time: 20:38 cp 12/22 19:31 Order name: Troponin HS; Complete Time: 20:38 cp 12/22 19:31 Order name: CK; Complete Time: 20:38 cp 12/22 19:31 Order name: Urinalysis w/ reflexes; Complete Time: 00:12 cp 12/22 23:31 Order name: Hemoglobin A1c; Complete Time: 00:12 EDIA 12/22 23:55 Order name: UR CREAT; Complete Time: 00:12 EDIA 12/23 05:01 Order name: Phosphorus EDIA 12/23 05:01 Order name: Creatine Phosphokinase EDIA 12/23 05:01 Order name: Troponin High Sensitivity EDIA 12/23 05:01 Order name: Lipid Profile EDIA 12/23 05:01 Order name: Magnesium EDIA 12/23 05:05 Order name: Comprehensive Metabolic Panel [facility] 12/23 07:09 Order name: CBC without Diff [facility] 12/22 19:31 Order name: XRAY Chest (1 view); Complete Time: 20:38 cp 12/22 20:48 Order name: CT Stone Protocol; Complete Time: 22:08 cp 12/22 22:09 Interpretation: Report reviewed. 12/22 22:18 Order name: CONS Physician Consult; Complete Time: 23:50 EDIA 12/22 19:31 Order name: Cardiac monitoring; Complete Time: 19:33 cp 12/22 19:31 Order name: EKG - Nurse/Tech; Complete Time: 19:33 cp 12/22 19:31 Order name: IV Saline Lock; Complete Time: 19:33 cp 12/22 19:31 Order name: Labs collected and sent; Complete Time: 19:33 cp 12/22 19:31 Order name: O2 Per Protocol; Complete Time: 19:33 cp 12/22 19:31 Order name: O2 Sat Monitoring; Complete Time: 19:33 cp EC/29 19:35 Rate is 88 beats/min. Rhythm is regular. WI interval is normal. QRS interval is cp prolonged at 106 msec. QT interval is normal. T waves are Inverted in leads II, III, aVF, V5, V6. Interpreted by me. Reviewed by me. Administered Medications: 19:54 Drug: Aspirin PO Chewable Tablet 324 mg PO once; 81 mg tablets x 4 Route: PO; bm8 21:12 Follow up: Response: No adverse reaction bm8 19:54 Drug: NS 0.9% IV 1000 ml IV at 1 bolus Per protocol; 1000 mL bolus Route: IV; Rate: 1 bm8 bolus; Site: left antecubital; 21:12 Follow up: Response: No adverse reaction; IV Status: Completed infusion; IV Intake: bm8 1000ml 19:54 Drug: fentaNYL (PF) IVP 25 mcg IVP once Route: IVP; Site: left antecubital; bm8 21:12 Follow up: Response: No adverse reaction bm8 19:54 Drug: Ondansetron IVP 4 mg IVP once; over 2 minutes Route: IVP; Site: left antecubital; bm8 21:12 Follow up: Response: No adverse reaction bm8 21:12 Drug: NS 0.9% IV 1000 ml IV at 1 bolus Per protocol; 1000 mL bolus Route: IV; Rate: 1 bm8 bolus; Site: left antecubital; 21:51 Follow up: IV Status: Completed infusion; IV Intake: 1000ml bm8 Disposition: 12/23 06:43 Co-signature as Attending Physician, Sabino Beal MD I agree with the assessment sp4 and plan of care. I reviewed the patient's care provided by Advanced Practice Provider \T\ agree w/ the diagnosis \T\ care plan. I personally saw the pt \T\ performed a substantive portion of the visit, incldng all aspects of the (History/Exam/Medical Decision Making). 06:45 Chart complete. sp4 Disposition Summary: 12/23/23 22:10 Hospitalization Ordered Notes: Hospitalization Status: Inpatient Admission cp Provider: Bright Tinoco cp Condition: Stable cp Problem: new cp Symptoms: have improved cp Bed/Room Type: Standard cp Location: Telemetry/MedSurg (Inpatient)(12/24/23 10:21) bd Room Assignment: 229(12/24/23 10:21) bd Diagnosis - Chest pain, unspecified cp - Acute kidney failure, unspecified cp Forms: - Medication Reconciliation Form cp - SBAR form cp - Leadership Thank You Letter cp Signatures: Dispatcher [employer] Priya Gandhi Corey, PA PA cp Doyle Zamorano, RN RN jb4 Jessica Puga RN RN [email or web address] Sabino Beal MD MD sp4 Easton Ramos RN RN bm8 Corrections: (The following items were deleted from the chart) 12/22 19:32 19:32 Chest Single View+RAD.RAD.BRZ ordered. EDMS EDMS 20:48 20:48 Stone Protocol+CT.RAD.BRZ ordered. EDMS EDMS 21:41 21:28 Stone Protocol+CT.RAD.BRZ ordered. EDMS EDMS 12/23 00:39 12/22 22:10 Telemetry/MedSurg (Inpatient) cp kd3 12/23 00:39 12/22 22:10 cp kd3 12/23 10:21 00:39 [facility] ER HOLD kd3 bd 10:21 00:39 ERHOLD- kd3 bd
--- NOTE | 2023-12-23 22:10 | ER ---
Nurse's Notes [facility] Name: Chris Storey Age: 43 yrs Sex: Male : 1980 Arrival Date: 12/23/2023 Time: 18:50 Bed 8 Private MD: Diagnosis: Chest pain, unspecified;Acute kidney failure, unspecified Presentation: 12/22 19:27 Chief complaint: Patient states: I am having low blood pressure. I was working on the [employer] all day, I got dehydrated, dried to rehydrate with 2 gatorades but threw it all up. I have a fluttering sensation that comes and goes and when it stops I have a pressure like chest pain in the middle of my chest that is an 8/10. Coronavirus screen: At this time, the client does not indicate any symptoms associated with coronavirus-19. Ebola Screen: No symptoms or risks identified at this time. Initial Sepsis Screen: Does the patient meet any 2 criteria? HR > 90 bpm. Yes Does the patient have a suspected source of infection? No. Patient's initial sepsis screen is negative. Risk Assessment: Do you want to hurt yourself or someone else? Patient reports no desire to harm self or others. Onset of symptoms was December 23, 2023. Transition of care: patient was not received from another setting of care. 19:27 Method Of Arrival: Ambulatory [facility] 19:27 Acuity: BUSHRA 2 jb4 Historical: - Allergies: 19:30 No Known Allergies; jb4 - PMHx: 19:30 HTN; jb4 - PSHx: 19:30 None; jb4 - Immunization history:: Adult Immunizations up to date. - Infectious Disease History:: Denies. - Social history:: Smoking status: Patient reports use of chewing tobacco. Patient uses alcohol, occasionally. Screenin:59 [facility] ED Fall Risk Assessment (Adult) History of falling in the last 3 months, bm8 including since admission No falls in past 3 months (0 pts) Confusion or Disorientation No (0 pts) Intoxicated or Sedated No (0 pts) Impaired Gait No (0 pts) Mobility Assist Device Used No (0 pt) Altered Elimination No (0 pt) Score/Fall Risk Level 0 - 2 = Low Risk Oriented to surroundings, Maintained a safe environment, Educated pt \T\ family on fall prevention, incl call for assistance when getting out of bed, Hourly rounding (assess needs \T\ fall precautionary measures) done, Used ambulatory aids as needed (educated on \T\ assisted with). Abuse screen: Denies threats or abuse. Nutritional screening: No deficits noted. Tuberculosis screening: No symptoms or risk factors identified. Assessment: 19:59 Reassessment: Patient appears in no apparent distress at this time. Patient and/or bm8 family updated on plan of care and expected duration. Pain level reassessed. Patient is alert, oriented x 3, equal unlabored respirations, skin warm/dry/pink. General: Appears in no apparent distress. comfortable, Behavior is calm, cooperative, appropriate for age. Pain: Complains of pain in back and chest Pain does not radiate. Pain currently is 10 out of 10 on a pain scale. Quality of pain is described as aching, crampy, Pain began 1 day ago. Is continuous. Neuro: No deficits noted. Level of Consciousness is awake, alert, obeys commands, Oriented to person, place, time, situation, Appropriate for age. Cardiovascular: No deficits noted. Heart tones S1 S2 present Capillary refill < 3 seconds Patient's skin is warm and dry. Rhythm is sinus tachycardia. Respiratory: Airway is patent Trachea midline Respiratory effort is even, unlabored, Respiratory pattern is regular, symmetrical. GI: No signs and/or symptoms were reported involving the gastrointestinal system. : No signs and/or symptoms were reported regarding the genitourinary system. EENT: No signs and/or symptoms were reported regarding the EENT system. Derm: No signs and/or symptoms reported regarding the dermatologic system. Musculoskeletal: Reports crampy/ aching pain in upper torso area. 21:50 Reassessment: Patient appears in no apparent distress at this time. No changes from bm8 previously documented assessment. Patient and/or family updated on plan of care and expected duration. Pain level reassessed. Patient is alert, oriented x 3, equal unlabored respirations, skin warm/dry/pink. Patient denies pain at this time. Patient states feeling better. Patient states symptoms have improved. 23:29 Reassessment: Patient appears in no apparent distress at this time. Patient and/or bm8 family updated on plan of care and expected duration. Pain level reassessed. Patient is alert, oriented x 3, equal unlabored respirations, skin warm/dry/pink. Patient denies pain at this time. Patient states feeling better. Patient states symptoms have improved. Vital Signs: 19:27 BP 116 / 70; Pulse 98; Resp 18; Pulse Ox 98% on R/A; Weight 127.01 kg (R); Height 6 ft. jb4 1 in. (R); Pain 8/10; 19:59 BP 103 / 65; Pulse 88; Resp 17; Temp 98.6; Pulse Ox 98% ; Pain 10/10; bm8 21:50 BP 116 / 73; Pulse 85; Resp 17; Temp 98.6; Pulse Ox 98% ; Pain 0/10; bm8 23:29 BP 136 / 72; Pulse 78; Resp 17; Temp 98.5; Pulse Ox 98% ; Pain 0/10; bm8 19:27 Body Mass Index 36.94 (127.01 kg, 185.42 cm) jb4 19:27 Pain Scale: Adult jb4 19:59 Pain Scale: Adult bm8 21:50 Pain Scale: Adult bm8 23:29 Pain Scale: Adult bm8 [place] Coma Score: 19:59 Eye Response: spontaneous(4). Motor Response: obeys commands(6). Verbal Response: bm8 oriented(5). Total: 15. 21:50 Eye Response: spontaneous(4). Motor Response: obeys commands(6). Verbal Response: bm8 oriented(5). Total: 15. 23:29 Eye Response: spontaneous(4). Motor Response: obeys commands(6). Verbal Response: bm8 oriented(5). Total: 15. ED Course: 18:53 Patient arrived in ED. mg5 19:15 Jaret Dyson PA is PHCP. cp 19:15 Sabino Beal MD is Attending Physician. cp 19:26 Jessica Puga, SOFIYA is Primary Nurse. kd3 19:30 Triage completed. jb4 19:30 Arm band placed on right wrist. jb4 19:33 EKG done, by ED staff, reviewed by Jaret RUVALCABA. kd3 19:59 Patient has correct armband on for positive identification. Bed in low position. Call bm8 light in reach. Side rails up X 1. Client placed on continuous cardiac and pulse oximetry monitoring. NIBP monitoring applied. geoint analyst on. Pulse ox on. NIBP on. Door closed. Noise minimized. Visitors limited. Pillow given. Verbal reassurance given. Head of bed elevated. 19:59 Inserted saline lock: 20 gauge in left antecubital area, using aseptic technique. Blood bm8 collected. Flushed with 10 mL NS Flushed left antecubital with 5 ml normal saline. Patient maintains SpO2 saturation greater than 95% on room air. 20:08 XRAY Chest (1 view) In Process Unspecified. EDMS 21:32 CT Stone Protocol In Process Unspecified. EDMS 21:50 No provider procedures requiring assistance completed. bm8 22:09 Bright Tinoco is Hospitalizing Provider. cp 23:49 Provided Education on: need for admission. Diet tray given. PO fluids given. bm8 23:49 Patient admitted, IV remains in place. bm8 Administered Medications: 19:54 Drug: Aspirin PO Chewable Tablet 324 mg PO once; 81 mg tablets x 4 Route: PO; bm8 21:12 Follow up: Response: No adverse reaction bm8 19:54 Drug: NS 0.9% IV 1000 ml IV at 1 bolus Per protocol; 1000 mL bolus Route: IV; Rate: 1 bm8 bolus; Site: left antecubital; 21:12 Follow up: Response: No adverse reaction; IV Status: Completed infusion; IV Intake: bm8 1000ml 19:54 Drug: fentaNYL (PF) IVP 25 mcg IVP once Route: IVP; Site: left antecubital; bm8 21:12 Follow up: Response: No adverse reaction bm8 19:54 Drug: Ondansetron IVP 4 mg IVP once; over 2 minutes Route: IVP; Site: left antecubital; bm8 21:12 Follow up: Response: No adverse reaction bm8 21:12 Drug: NS 0.9% IV 1000 ml IV at 1 bolus Per protocol; 1000 mL bolus Route: IV; Rate: 1 bm8 bolus; Site: left antecubital; 21:51 Follow up: IV Status: Completed infusion; IV Intake: 1000ml bm8 Medication: 19:59 VIS not applicable for this client. bm8 Intake: 21:12 IV: 1000ml; Total: 1000ml. bm8 21:51 IV: 1000ml; Total: 2000ml. bm8 Outcome: 22:10 Decision to Hospitalize by Provider. cp 23:49 Admitted to ER Hold. Please see [facility] for further documentation. bm8 23:49 Condition: stable 23:49 Instructed on the need for admit, Demonstrated understanding of instructions, follow-up care, 12/23 11:35 Patient left the ED. rs5 Signatures: Dispatcher [employer] EDMS Jaret Dyson PA PA cp Bryson, James, RN RN jb4 Jessica Puga, SOFIYA RN kd3 Solitario Murray, RN RN rs5 Patty Tate 5 Easton Ramos RN RN bm8
[2023-12-23] MEDS ORDERED: ACETAMINOPHEN 500 MG TAB PO PRN (22:26)
[2023-12-23] MEDS ORDERED: NITROGLYCERIN 0.4 MG/TAB SL PRN (22:26)
[2023-12-24 00:04] LABS: Calcium Oxalate Crystals- Ur Few /HPF (None Seen); Specific Gravity 1.018 (1.005-1.030); Sqamous Epithelial <5 /HPF (None Seen); Urine Bacteria <20 /HPF (<20); Urine Bilirubin NEGATIVE (Negative); Urine Blood 1+ (Negative); Urine Clarity Extremely Turbid (Clear); Urine Color Yellow (Yellow); Urine Culture Reflex Order REFLEXED; Urine Glucose NEGATIVE (Negative); Urine Ketones NEGATIVE (Negative); Urine Microscopic Reflex YN ORDER UMIC; Urine Mucus 2+ /HPF (None Seen); Urine Nitrite NEGATIVE (Negative); Urine Protein 2+ (Negative); Urine RBC <5 /HPF (None Seen); Urine Urobilinogen Normal (Normal)
[2023-12-24 00:07] VITALS: BMI 36.9
[2023-12-24] MEDS ORDERED: Ringers Lactate 1,000 ML IV ONE ×2 (00:24→07:46)
[2023-12-24] MEDS: HEPARIN 5000 UNIT/ML 1 ML VIAL SQ SCH (00:40)
[2023-12-24] MEDS: Ringers Lactate 1,000 ML IV SCH (00:43)
--- NOTE | 2023-12-24 01:37 | P.HP ---
Certification for Inpatient With expected LOS: >2 Midnights Patient will require the following post-hospital care: None Practitioner: I am a practitioner with admitting privileges, knowledge of patient current condition, hospital course, and medical plan of care. Services: Services provided to patient in accordance with Admission requirements found in Title 42 Section 412.3 of the Code of Federal Regulations Patient History Date of Service: 12/24/23 History of Present Illness: 43-year-old male presented to the emergency room with complaints of chest pressure, palpitations and reported low blood pressure. Patient reports he was working outside most of today. He was changing his tire. He states that he does take antihypertensive medications including lisinopril and hydrochlorothiazide. He took 2 hydrochlorothiazide for total of 25 mg today. Onset of chest pressure was described as early afternoon around noon. Denies radiation. But reports having pressure and palpitation. He denies history of previous heart disease or family history of heart disease. He does occasionally smoke chew tobacco and drink. Denies illicit drug use, Taking any supplements, energy drinks, or pre workouts. He does report taking testosterone replacement In the ER patient was noted to have a nonobstructive kidney stone. Allergies No Known Allergies Allergy (Unverified 04/11/12 08:32) - Past Medical/Surgical History Has patient received pneumonia vaccine in the past: No Diabetic: No -: HTN - Social History Smoking Status: Never smoker Alcohol use: Yes CD- Drugs: No Caffeine use: Yes Place of Residence: Home Review of Systems 10-point ROS is otherwise unremarkable Cardiovascular: Chest Pain, Palpitations Physical Examination - Vital Signs Temperature: 98.4 F Blood Pressure: 137/80 Pulse: 81 Respirations: 17 Pulse Ox (%): 98 - Physical Exam General: Alert, In no apparent distress, Oriented x3 HEENT: Atraumatic, EOMI Neck: JVD not distended Respiratory: Clear to auscultation bilaterally, Normal air movement Cardiovascular: Normal pulses, Normal S1 S2 Gastrointestinal: Normal bowel sounds, Soft and benign, Non-distended Musculoskeletal: No clubbing, No swelling Integumentary: Rash(es) Neurological: Normal gait, Normal speech, Normal strength at 5/5 x4 extr - Studies Laboratory Data (last 24 hrs) 12/23/23 12/23/23 12/23/23 19:33 19:33 19:33 WBC 19.80 H Hgb 16.1 Hct 49.6 H Plt Count 276 PT 11.2 INR 1.00 Sodium 138 Potassium 3.7 BUN 20 H Creatinine 3.40 H Glucose 106 Magnesium 2.5 H Total Bilirubin 0.6 AST 31 ALT 46 Alkaline Phosphatase 52 Imagings Data: CT abdomen pelvis nonobstructive stone Assessment and Plan - Problems (Diagnosis) (1) Chest pain Current Visit: Yes Status: Acute (2) Rhabdomyolysis Current Visit: Yes Status: Acute (3) Acute kidney failure Current Visit: Yes Status: Acute (4) Hypotension Current Visit: Yes Status: Acute (5) Abnormal EKG Current Visit: Yes Status: Acute (6) Tobacco use Current Visit: Yes Status: Acute (7) Leukocytosis Current Visit: Yes Status: Acute - Plan 43-year-old male with history of hypertension, on testosterone placement presents to ER with complaints of chest discomfort. #chest pain #hypotension #abnormal EKG -- Symptoms seem to be exertional on onset while he was working outside -- Chest pain resolved -- Admit to telemetry, serial cardiac enzymes, check echocardiogram, check lipid profile, check A1c -- Aspirin given in ER -- RN nitro for chest pain, Tylenol --cardiology called and paged in ED --will keep NPO after midnight, for possible stress test pending cardiology eval #Rhabdomyolosis -- Will continue lactated Ringer's at 150 cc an hour -- Repeat labs in a.m. #leukocytosis -- Unclear etiology, chest x-ray clear, UA done --Will order blood cultures #GURDEEP #Abnormal UA -- CT abdomen pelvis noncontrast done showed nonobstructing stone -- Continue IV fluids, urine studies ordered -- Monitor I's and O's -- Avoid nephrotoxic medications when possible -- Pending clinical course may need nephrology consultation DVT: Heparin Code:Full - Advance Directives Does patient have a Living Will: No Does patient have a Durable POA for Healthcare: No - Code Status/Comfort Care Code Status Assessed: Yes Code Status: Full Code Critical Care: No
[2023-12-24 05:00] LABS: Albumin 3.8 g/dL (3.4-5.0); Albumin/Globulin Ratio 1.4 (1.1-1.8); Anion Gap 7.5 mEq/L (5.0-15.0); Bilirubin Total 0.6 mg/dL (0.2-1.0); Globulin 2.8 g/dL (2.3-3.5); Potassium 3.5 mEq/L (3.5-5.1); Protein, Total 6.6 g/dL (6.4-8.2)
[2023-12-24 05:01] LABS: Magnesium 2.6 mg/dL (1.6-2.4); Phosphorus 5.5 mg/dL (2.5-4.9); Troponin High Sensitivity 14.1 pg/mL (<58.9)
[2023-12-24 07:04] LABS: Hemoglobin 14.1 g/dL (13.6-17.9); MCH 27.3 pg (27.0-35.0); MCHC 31.9 g/dL (32.0-36.0); MCV 85.6 fL (80-100); Platelets 193 thou/uL (152-406); RBC Red Blood Cell Count 5.14 M/uL (4.33-5.43); Red Cell Distribution Width 14.1 % (12.1-15.2)
[2023-12-24] MEDS ORDERED: ASPIRIN EC 325 MG TABLET PO ONE (07:46)
[2023-12-24] MEDS: ASPIRIN EC 81 MG TAB PO SCH (07:54)
[2023-12-24 11:40] VITALS: O2SAT 98
--- NOTE | 2023-12-24 11:46 | P.CNS ---
Date of Consult: 12/24/23 Chief Complaint: weakness History of Present Illness: Patient with PMH of HTN, Presented with generalized weakness, dizziness after doing heavy exertion, he denies chest pain, no SOB, no MG, no palpitations, no syncope. Allergies No Known Allergies Allergy (Unverified 04/11/12 08:32) - Past Medical/Surgical History Diabetic: No -: HTN - Social History Smoking Status: Current some day smoker Alcohol use: Yes CD- Drugs: No Caffeine use: Yes Place of Residence: Home Review of Systems 10-point ROS is otherwise unremarkable Physical Examination Temp Pulse Resp BP Pulse Ox 97.4 F 83 17 136/78 97 12/24/23 06:32 12/24/23 06:32 12/24/23 06:32 12/24/23 06:32 12/24/23 06:32 General: Alert, In no apparent distress HEENT: Atraumatic, PERRLA, Mucous membr. moist/pink, EOMI, Sclerae nonicteric Neck: Supple, 2+ carotid pulse no bruit, No LAD, Without JVD or thyroid abnormality Respiratory: Clear to auscultation bilaterally, Normal air movement Cardiovascular: Regular rate/rhythm, Normal S1 S2 Gastrointestinal: Normal bowel sounds, No tenderness Musculoskeletal: No tenderness Integumentary: No rashes Neurological: Normal gait, Normal speech, Normal tone, Normal affect Lymphatics: No axilla or inguinal lymphadenopathy Laboratory Data (last 24 hrs) 12/23/23 12/23/23 12/23/23 19:33 19:33 19:33 WBC 19.80 H Hgb 16.1 Hct 49.6 H Plt Count 276 PT 11.2 INR 1.00 Sodium 138 Potassium 3.7 BUN 20 H Creatinine 3.40 H Glucose 106 Magnesium 2.5 H Total Bilirubin 0.6 AST 31 ALT 46 Alkaline Phosphatase 52 - Problems (1) Chest pain Current Visit: Yes Status: Acute Plan: Patient denies having chest pain, no significant ST-T wave changes, no troponin leak. can follow up as outpatient for stress test. No need for further cardiac work up. (2) Hypotension Current Visit: Yes Status: Acute Plan: Patient BP is normal off medications, continue to hold and monitor (3) Rhabdomyolysis Current Visit: Yes Status: Acute Plan: IV hydration.
[2023-12-24] MEDS: POTASSIUM CL SA 10 MEQ TAB PO ONE (12:59)
--- NOTE | 2023-12-24 14:38 | P.PN ---
Subjective Date of Service: 12/24/23 Chief Complaint: weakness Subjective: Improving (pt with significant improvement with IV hydration) <Lawanda Arredondo - Last Filed: 12/24/23 14:39> Date of Service: 12/24/23 <Alisha Downey Melody - Last Filed: 12/24/23 15:07> Review of Systems 10-point ROS is otherwise unremarkable General: Malaise Cardiovascular: Palpitations <Lawanda Arredondo - Last Filed: 12/24/23 14:39> Physical Examination - Vital Signs Temperature: 97.3 F Blood Pressure: 140/85 Pulse: 56 Respirations: 12 Pulse Ox (%): 100 - Physical Exam General: Alert, In no apparent distress, Oriented x3 HEENT: Atraumatic, Normocephalic Neck: Supple Respiratory: Clear to auscultation bilaterally Cardiovascular: Normal pulses, Regular rate/rhythm, Normal S1 S2 Capillary refill: <2 Seconds Gastrointestinal: Soft and benign Musculoskeletal: No clubbing, No swelling Integumentary: No rashes Neurological: Normal speech, Normal tone, Normal affect Lymphatics: No axilla or inguinal lymphadenopathy External genitalia: Deferred Rectal: Deferred Other Physical/Emotional Findings: Pt taking testosterone x 2 years, first phlebotomy a few months ago. On Sat. (3 days ago) he donated blood. Yesterday's heat index 118. States he is used to working in heat but it has been raining "for three weeks". - Studies Laboratory Data (last 24 hrs) 12/23/23 12/23/23 12/23/23 19:33 19:33 19:33 WBC 19.80 H Hgb 16.1 Hct 49.6 H Plt Count 276 PT 11.2 INR 1.00 Sodium 138 Potassium 3.7 BUN 20 H Creatinine 3.40 H Glucose 106 Magnesium 2.5 H Total Bilirubin 0.6 AST 31 ALT 46 Alkaline Phosphatase 52 <Lawanda Arredondo - Last Filed: 12/24/23 14:39> - Studies Laboratory Data (last 24 hrs) 12/23/23 12/23/23 12/23/23 19:33 19:33 19:33 WBC 19.80 H Hgb 16.1 Hct 49.6 H Plt Count 276 PT 11.2 INR 1.00 Sodium 138 Potassium 3.7 BUN 20 H Creatinine 3.40 H Glucose 106 Magnesium 2.5 H Total Bilirubin 0.6 AST 31 ALT 46 Alkaline Phosphatase 52 <Alisha Downey - Last Filed: 12/24/23 15:07> Assessment And Plan - Plan Assessment and Plan - Problems (Diagnosis) (1) Chest pain Current Visit: Yes Status: Acute (2) Rhabdomyolysis Current Visit: Yes Status: Acute (3) Acute kidney failure Current Visit: Yes Status: Acute (4) Hypotension Current Visit: Yes Status: Acute (5) Abnormal EKG Current Visit: Yes Status: Acute (6) Tobacco use Current Visit: Yes Status: Acute (7) Leukocytosis Current Visit: Yes Status: Acute - Plan 43-year-old male with history of hypertension, on testosterone placement presents to ER with complaints of chest discomfort. #chest pain #hypotension #abnormal EKG -- Symptoms seem to be exertional on onset while he was working outside -- Chest pain resolved -- Admit to telemetry, serial cardiac enzymes, check lipid profile, check A1c -- Aspirin given in ER -- RN nitro for chest pain, Tylenol --cardiology called and paged in ED --Dr. Marcano following #Rhabdomyolosis -- Will continue lactated Ringer's at 150 cc an hour -- Repeat labs in a.m. #leukocytosis -- Unclear etiology, chest x-ray clear, UA done --Will order blood cultures -- resolved post IVF (12/23) #GURDEEP #Abnormal UA -- CT abdomen pelvis noncontrast done showed nonobstructing stone -- Continue IV fluids, urine studies ordered -- Monitor I's and O's -- Avoid nephrotoxic medications when possible -- Pending clinical course may need nephrology consultation - consulted nephro -- Rhabdo with dehydration DVT: Heparin Code:Full - Advance Directives Does patient have a Living Will: No Does patient have a Durable POA for Healthcare: No - Code Status/Comfort Care Code Status Assessed: Yes Code Status: Full Code Discharge Plan: Home Plan to discharge in: 24 Hours <Lawanda Arredondo - Last Filed: 12/24/23 14:39> - Plan Pt seen and examined. I agree with the note by the DIRECTOR OF RESERVATIONS. Troponin is negative x2. Consulted Cardiology. Will f/u Echo. Continue IVF for rhabdomyolysis and GURDEEP. Consulted nephrology. Will f/u with Cardiology in clinic for further cardiac work up. <Alisha Downey - Last Filed: 12/24/23 15:07>
--- NOTE | 2023-12-24 15:19 | CON ---
Date of Consultation: 12/24/2023 Reason For Consultation: Elevated BUN and creatinine. History Of Present Illness: This is a 43-year-old gentleman with significant past medical history of hypertension, hyperlipidemia, patient came to the hospital complaining from chest pain, found to have elevation in BUN and creatinine. For that reason, we have been consulted. Patient denied any history of kidney disease before. Upon presentation to the hospital, creatinine 3.4, today creatinine down to 2.3. GFR was 22, currently 34. Patient denied taking any nonsteroidal. Medications: Include lisinopril and hydrochlorothiazide. Past Medical History: Include hypertension. Social History: Denied smoking. Active alcohol. Denied drugs abuse. Allergies: NO KNOWN DRUGS ALLERGY. Review of Systems: Head and Neck: No red eye. No ear pain. GI: Has no nausea. No vomiting. : No polyuria. No dysuria. No hematuria. Tongue Trimmer: Not applicable. Respiratory: No shortness of breath. Cardiovascular: Has chest pain. Endocrine: No polydipsia. Skin: No rash. Neuro: No weakness. Musculoskeletal: Has cramps. Physical Examination: Vital Signs: When I saw the patient, upon arrival to the hospital, the patient's blood pressure was down to the 90. Currently, blood pressure 136/78, pulse of 83. Chest: Clear to auscultation. Heart: S1, S2. Regular. Abdomen: Soft, nontender. Extremity: No edema. Neurologic: Alert, oriented x3. No focality. Laboratory Data: Sodium 137, potassium 3.5, bicarb 30, BUN 23, creatinine 2.3, GFR 34, calcium 8.6, phosphorus 5.5, magnesium 2.6, albumin 3.8. TSH still pending. WBC 9.9, hemoglobin 14.1. Urinalysis: Negative infection for specific gravity of 1.018, protein +2, CK was elevated at 320. Assessment And Plan: 1. Acute kidney injury, multifactorial, secondary to heat exertion, superimposed with mild rhabdomyolysis. No hyperkalemia. No acidosis, nonoliguric, superimposed with LUIS FERNANDO inhibitor and hydrochlorothiazide. a. I agree with holding LUIS FERNANDO inhibitor and hydrochlorothiazide. Obstructive uropathy has been ruled out. I am going to continue hydration for the patient and we will monitor the patient closely. 2. Hypertension, controlled, optimal with the presence of acute kidney injury and low blood pressure. Hold all blood pressure medications including LUIS FERNANDO inhibitor and hydrochlorothiazide. 3. Hypokalemia with the presence of rhabdomyolysis. I am going to replace, and we will follow up the patient. Continue LR. 4. Hyponatremia, depletional. Continue hydration. 5. Rhabdomyolysis, mild, secondary to heat exertion. Continue hydration. 6. Heat exertion. As above. Continue hydration. 7. Chest pain. We will follow up with Cardiology. If patient is going to need cardiac cath, I explained to the patient risks, benefits, alternatives, possible acute kidney injury secondary to contrast. We will follow up stress test for the patient. Time spent examining the patient [id number] reviewing data lab and the radiology placing orders discussing the case with the patient discussing the case with the steam presser including hospitalist and nursing staff more than 75 minutes FER Voice ID: [id number] Report ID: [id number] MTDD
[2023-12-24 18:22] LABS: Thyroid Stimulating Hormone 0.698 uIU/mL (0.358-3.740); Troponin High Sensitivity 12.4 pg/mL (<58.9)
[2023-12-25 04:44] LABS: Hematocrit 43.9 % (39.6-49.0); Hemoglobin 14.4 g/dL (13.6-17.9); MCH 27.9 pg (27.0-35.0); MCHC 32.9 g/dL (32.0-36.0); MCV 84.7 fL (80-100); MPV 8.3 fL (7.6-11.3); Platelets 168 thou/uL (152-406); RBC Red Blood Cell Count 5.18 M/uL (4.33-5.43); Red Cell Distribution Width 14.1 % (12.1-15.2)
[2023-12-25 05:02] VITALS: TEMP 97.4
[2023-12-25 05:07] LABS: Albumin 3.6 g/dL (3.4-5.0); Albumin/Globulin Ratio 1.3 (1.1-1.8); Bilirubin Total 0.5 mg/dL (0.2-1.0); Globulin 2.7 g/dL (2.3-3.5); Phosphorus 2.2 mg/dL (2.5-4.9); Protein, Total 6.3 g/dL (6.4-8.2)
--- NOTE | 2023-12-25 08:36 | ECHO ---
HEIGHT: 6 ft 1 in WEIGHT: 280 lb 0 oz DATE OF STUDY: 12/24/[address]: Bright Tinoco MD 2-DIMENSIONAL: YES M.MODE: YES DOPPLER: YES COLOR FLOW: YES TDS: PORTABLE: YES DEFINITY: BUBBLE STUDY: DIAGNOSIS: CHEST PAIN CARDIAC HISTORY: CATHERIZATION: SURGERY: PROSTHETIC VALVE: PACEMAKER: MEASUREMENTS (cm) DIASTOLIC (NORMALS) SYSTOLIC (NORMALS) IVSd 1.2 (0.6-1.2) LA Diam 4.6 (1.9-4.0) LVEF 62% LVIDd 5.6 (3.5-5.7) LVIDs 3.7 (2.0-3.5) %FS 34% LVPWd 1.2 (0.6-1.2) Ao Diam 3.2 (2.0-3.7) 2 DIMENSIONAL ASSESSMENT: RIGHT ATRIUM: NORMAL LEFT ATRIUM: NORMAL RIGHT VENTRICLE: NORMAL LEFT VENTRICLE: NORMAL TRICUSPID VALVE: TRACE TRICUSPID REGURGITATION MITRAL VALVE: TRACE MITRAL REGURGITATION PULMONIC VALVE: NORMAL AORTIC VALVE: NORMAL PERICARDIAL EFFUSION: NONE AORTIC ROOT: NORMAL LEFT VENTRICULAR WALL MOTION: NORMAL DOPPLER/COLOR FLOW: NORMAL COMMENTS: 1. NORMAL LEFT VENTRICULAR SYSTOLIC FUNCTION, EJECTION FRACTION 60-65%, NORMAL WALL MOTION 2. NORMAL DIASTOLIC FUNCTION TECHNOLOGIST: JUN LESLIE
[2023-12-25] MEDS: Ringers Lactate 1,000 ML IV ONE (08:56)
--- NOTE | 2023-12-25 09:03 | P.DS ---
Admission Date: 12/23/23 Discharge Date: 12/25/23 Reason for Admission: weakness Consultations: Dr. Marcano and Dr. Lopez Procedures: ECHO Brief History of Present Illness: 43-year-old male presented to the emergency room with complaints of chest pressure, palpitations and reported low blood pressure. Patient reports he was working outside most of today. He was changing his tire. He states that he does take antihypertensive medications including lisinopril and hydrochlorothiazide. He took 2 hydrochlorothiazide for total of 25 mg today. Onset of chest pressure was described as early afternoon around noon. Denies radiation. But reports having pressure and palpitation. He denies history of previous heart disease or family history of heart disease. He does occasionally smoke chew tobacco and drink. Denies illicit drug use, Taking any supplements, energy drinks, or pre workouts. He does report taking testosterone replacement Hospital Course: Mr. Storey did well over the course of his hospitalization. He was hydrated with with lactated Ringer's in a cool environment and his kidney function recovered quickly. He was seen by Dr. Powell, cardiology, who recommended outpatient workup stress test. Echocardiogram performed with normal EF (60- 65%). He has been normotensive without his Lisinopril and HCTZ. Recommend holding and keeping blood pressure log. Await repeat kidney function analysis prior to beginning again. Consider not taking a diuretic. <Lawnada Arredondo - Last Filed: 12/25/23 09:00> Admission Date: 12/23/23 Discharge Date: 12/25/23 Hospital Course: Pt seen and examined. I agree with the note by the APPLIED RESEARCH DIRECTOR. Cardiology wanst pt to follow up in clinic for further cardiac work up.Echo showed Ef 60 - 65%. We gave IVF for GURDEEP and held lisinopril and HCTZ. <Alisha Downey - Last Filed: 12/25/23 11:03> Disposition: ROUTINE DISCHARGE Discharge Condition: GOOD Vital Signs/Physical Exam: Temp Pulse Resp BP Pulse Ox 97.4 F 67 18 126/82 98 12/25/23 04:00 12/25/23 04:00 12/25/23 04:00 12/25/23 04:00 12/25/23 04:00 General: Alert, In no apparent distress, Oriented x3 HEENT: Atraumatic, Normocephalic Neck: Supple Respiratory: Normal air movement Cardiovascular: No edema, Normal pulses, Regular rate/rhythm Capillary refill: <2 Seconds Gastrointestinal: Soft and benign Musculoskeletal: No clubbing Integumentary: No rashes Neurological: Normal speech, Normal tone, Normal affect Lymphatics: No axilla or inguinal lymphadenopathy External genitalia: Deferred Rectal: Deferred Other Physical/Emotional Findings: Pt taking testosterone x 2 years, first phlebotomy a few months ago. On Sat. (3 days ago) he donated blood. Yesterday's heat index 118. States he is used to working in heat but it has been raining "for three weeks". Laboratory Data at Discharge: WBC 5.50 thou/uL (4.3-10.9) 12/25/23 04:24 Hgb 14.4 g/dL (13.6-17.9) 12/25/23 04:24 Hct 43.9 % (39.6-49.0) 12/25/23 04:24 Plt Count 168 thou/uL (152-406) 12/25/23 04:24 PT 11.2 SECONDS (9.4-12.5) 12/23/23 19:33 INR 1.00 12/23/23 19:33 Sodium 138 mEq/L (136-145) 12/25/23 04:24 Potassium 4.0 mEq/L (3.5-5.1) D 12/25/23 04:24 BUN 19 mg/dL (7-18) H 12/25/23 04:24 Creatinine 1.32 mg/dL (0.70-1.30) H 12/25/23 04:24 Glucose 102 mg/dL (74-106) 12/25/23 04:24 Uric Acid 7.0 mg/dL (3.5-7.2) 12/25/23 04:24 Phosphorus 2.2 mg/dL (2.5-4.9) L 12/25/23 04:24 Magnesium 2.6 mg/dL (1.6-2.4) H 12/24/23 04:00 Total Bilirubin 0.5 mg/dL (0.2-1.0) 12/25/23 04:24 AST 25 U/L (15-37) 12/25/23 04:24 ALT 34 U/L (16-61) 12/25/23 04:24 Alkaline Phosphatase 43 U/L (45-117) L 12/25/23 04:24 Triglycerides 179 mg/dL (<150) H 12/24/23 04:00 Cholesterol 146 mg/dL (<200) 12/24/23 04:00 HDL Cholesterol 39 mg/dL (40-60) L 12/24/23 04:00 Cholesterol/HDL Ratio 3.74 12/24/23 04:00 <Arredondo,Lawanda Vadim - Last Filed: 12/25/23 09:00> Vital Signs/Physical Exam: Temp Pulse Resp BP Pulse Ox 97.4 F 61 17 136/80 97 12/25/23 08:00 12/25/23 08:00 12/25/23 08:00 12/25/23 08:00 12/25/23 08:00 Laboratory Data at Discharge: WBC 5.50 thou/uL (4.3-10.9) 12/25/23 04:24 Hgb 14.4 g/dL (13.6-17.9) 12/25/23 04:24 Hct 43.9 % (39.6-49.0) 12/25/23 04:24 Plt Count 168 thou/uL (152-406) 12/25/23 04:24 PT 11.2 SECONDS (9.4-12.5) 12/23/23 19:33 INR 1.00 12/23/23 19:33 Sodium 138 mEq/L (136-145) 12/25/23 04:24 Potassium 4.0 mEq/L (3.5-5.1) D 12/25/23 04:24 BUN 19 mg/dL (7-18) H 12/25/23 04:24 Creatinine 1.32 mg/dL (0.70-1.30) H 12/25/23 04:24 Glucose 102 mg/dL (74-106) 12/25/23 04:24 Uric Acid 7.0 mg/dL (3.5-7.2) 12/25/23 04:24 Phosphorus 2.2 mg/dL (2.5-4.9) L 12/25/23 04:24 Magnesium 2.6 mg/dL (1.6-2.4) H 12/24/23 04:00 Total Bilirubin 0.5 mg/dL (0.2-1.0) 12/25/23 04:24 AST 25 U/L (15-37) 12/25/23 04:24 ALT 34 U/L (16-61) 12/25/23 04:24 Alkaline Phosphatase 43 U/L (45-117) L 12/25/23 04:24 Triglycerides 179 mg/dL (<150) H 12/24/23 04:00 Cholesterol 146 mg/dL (<200) 12/24/23 04:00 HDL Cholesterol 39 mg/dL (40-60) L 12/24/23 04:00 Cholesterol/HDL Ratio 3.74 12/24/23 04:00 <Alisha Downey - Last Filed: 12/25/23 11:03> Diet: Regular <Arredondo,Lawanda Vadim - Last Filed: 12/25/23 09:00> <Alisha Downey C - Last Filed: 12/25/23 11:03> Physician Discharge Instructions: DISCHARGE DIAGNOSES: 1. Rhabdomyolysis 2. Heat Exhaustion 3. Acute Kidney Injury PROCEDURES: 1. None EF 60-65% RIGHT ATRIUM: NORMAL LEFT ATRIUM: NORMAL RIGHT VENTRICLE: NORMAL LEFT VENTRICLE: NORMAL TRICUSPID VALVE: TRACE TRICUSPID REGURGITATION MITRAL VALVE: TRACE MITRAL REGURGITATION PULMONIC VALVE: NORMAL AORTIC VALVE: NORMAL PERICARDIAL EFFUSION: NONE AORTIC ROOT: NORMAL CONSULTS: 1. Dr. Marcano, Cardiology 2. Dr. Lopez, Nephrology HISTORY OF PRESENTATION: 43-year-old male presented to the emergency room with complaints of chest pressure, palpitations and reported low blood pressure. Patient reports he was working outside most of today. He was changing his tire. He states that he does take antihypertensive medications including lisinopril and hydrochlorothiazide. He took 2 hydrochlorothiazide for total of 25 mg today. Onset of chest pressure was described as early afternoon around noon. Denies radiation. But reports having pressure and palpitation. He denies history of previous heart disease or family history of heart disease. He does occasionally smoke chew tobacco and drink. Denies illicit drug use, Taking any supplements, energy drinks, or pre workouts. He does report taking testosterone replacement HOSPITAL COURSE: Mr. Storey did well over the course of his hospitalization. He was hydrated with with lactated Ringer's in a cool environment and his kidney function recovered quickly. He was seen by Dr. Powell, cardiology, who recommended outpatient workup stress test. Echocardiogram performed with normal EF (60-65%). He has been normotensive without his Lisinopril and HCTZ. Recommend holding and keeping blood pressure log. Await repeat kidney function analysis prior to beginning again. Consider not taking a diuretic. DISCHARGE MEDICATIONS: No discharge medications FOLLOW-UP: PCP in 1 to 2 weeks, take blood pressure log with you. Stop Lisinopril and HCTZ for now. Recommend avoiding diuretics with Testosterone use Followup: Joy Alejandro FNP [Primary Care Provider] - 1-2 Weeks
[2023-12-25 09:41] VITALS: BP 136/80
--- NOTE | 2023-12-25 11:47 | EKG ---
Test Date: 2023-12-24 Test Time: 04:02:18 Concrete Pump Operator Helper: BERNARD MEASUREMENT RESULTS: Intervals: Rate: 72 DE: 162 QRSD: 112 QT: 438 QTc: 479 [place]: P: 26 DE: 162 QRS: 73 T: -31 INTERPRETIVE STATEMENTS: Normal sinus rhythm with sinus arrhythmia T wave abnormality, consider inferolateral ischemia Prolonged QT Abnormal ECG Compared to ECG 12/23/2023 19:29:47 Prolonged QT interval now present T-wave abnormality still present Possible ischemia still present Electronically Signed On 12-25-23 11:44:15 CDT by Leonardo Marcano
--- NOTE | 2023-12-25 11:48 | EKG ---
Test Date: 2023-12-23 Test Time: 19:29:47 Motion Picture Projectionist: KIRK MEASUREMENT RESULTS: Intervals: Rate: 88 OR: 162 QRSD: 106 QT: 354 QTc: 428 [place]: P: 35 OR: 162 QRS: 68 T: -46 INTERPRETIVE STATEMENTS: Normal sinus rhythm T wave abnormality, consider inferolateral ischemia Abnormal ECG Compared to ECG 01/19/2022 19:33:14 Possible ischemia now present T-wave abnormality still present Electronically Signed On 12-25-23 11:44:33 CDT by Leonarod Marcano
--- NOTE | 2023-12-25 15:45 | PN ---
Date of Progress Note: 12/25/2023 Subjective: The patient was admitted to the hospital with acute kidney injury secondary to prerenal and chest pain superimposed with hydrochlorothiazide and ARB with poor perfusion ATN. Patient after hydration, kidney function has been improved. Objective: Vital Signs: Blood pressure 136/80, pulse of 61, afebrile. Chest: Clear to auscultation. Heart: S1, S2. Regular. Abdomen: Soft, nontender. Extremities: No edema. Neuro: Alert. No focality. Laboratory Data: WBC 5.5, hemoglobin 14.4. Sodium 138, potassium 4, bicarb 30, BUN 19, creatinine 1.3, GFR 68, calcium 8.9, uric acid 7, phosphorus 2.2. Current Medications: The patient on include nitroglycerin, LR, KCl. Assessment And Plan: 1. Acute kidney injury secondary to prerenal superimposed with hydrochlorothiazide and ARB, recovered, resolved. Obstructive uropathy has been ruled out. I am going to discontinue IV fluid. The patient cleared from the Renal standpoint for discharge planning. Please hold ARB and the hydrochlorothiazide to be challenged as outpatient. 2. Hypertension, controlled, optimal with the presence of acute kidney injury. Hold ARB and hydrochlorothiazide. 3. Chest pain, as by Cardiology. Time spent examining the patient [id number] reviewing data lab and the radiology placing orders discussing the case with the patient discussing the case with the teamcenter solution architect including hospitalist and nursing staff more than 55 minutes FER Voice ID: [id number] Report ID: [id number] ANNETTE
== END 2023-12-25 10:56 | disposition home or self-care (01) | DRG 683 ==
LOC: ER 18:50 → ERHOLD 22:24 → 2ND 12-24 11:11
PROVIDERS: ADMIT Internal Medicine; ATTEND Hospitalist
DX: N17.0 Acute kidney failure with tubular necrosis (principal); E87.1 Hypo-osmolality and hyponatremia; M62.82 Rhabdomyolysis; I10 Essential (primary) hypertension; I95.9 Hypotension, unspecified; E78.5 Hyperlipidemia, unspecified; E87.6 Hypokalemia; D72.829 Elevated white blood cell count, unspecified; T67.5XXA Heat exhaustion, unspecified, initial encounter; F17.220 Nicotine dependence, chewing tobacco, uncomplicated
CPT/HCPCS: 36415; 71045; 74176; 76377; 80048; 80053; 80061; 80069; 80076; 81001; 82550; 82570; 83036; 83735; 83880; 83970; 84100; 84443; 84484; 84550; 85025; 85027; 85610; 87040; 87086; 87088; 93005; 93306; 96361; 96374; 96375; 99285; J1644; J2405; J3010; J7030; J7120